=== PATIENT | female | born 1940 | race Caucasian/White ===

== ENCOUNTER 2017-12-09 15:31 | Observation (INO) | payer MEDICARE ==
[~2017-12-09] VITALS: Ht 167.6 cm; Wt 101.4 kg
[2017-12-09] VITALS (9 sets, daily range): BP systolic 138–167; BP diastolic 64–96; PULSE 75–84; RESP 18–22; TEMP 98.3–99.3; O2SAT 92–97
[~2017-12-09 15:31] MED LIST: DILT360C12 PO; DOXA1 PO; FURO20TA PO; LORTA5 PO; LUTE20CA PO; MISC1TAB9 PO; OYST500T77 PO; PERI8.6T PO; RAMI10CA35 PO; RIVA10 PO; TAB-TAB PO; VITA-5 PO; VITA400C70 PO; Z.0.COMMODE-3:1; Z.0.WALKERFRONT
[2017-12-09] MEDS ORDERED: FURO20TA PO (16:56)
[2017-12-09] MEDS ORDERED: DOXA1TAB35 PO (16:56)
[2017-12-09] MEDS ORDERED: RAMI10CA PO (16:56)
[2017-12-09] MEDS ORDERED: ASPI81CH6 CHEW (16:56)
[2017-12-09] MEDS ORDERED: HYDR-3516 PO (16:56)
[2017-12-09] MEDS ORDERED: VITA1000 PO (16:56)
[2017-12-09] MEDS ORDERED: INFL100P (16:56)
[2017-12-09] MEDS ORDERED: DILT360C12 PO (16:56)
[2017-12-09] MEDS ORDERED: CALC1TAB87 PO (16:56)
[2017-12-09] MEDS ORDERED: METH2.5T PO (16:56)
[2017-12-09] MEDS ORDERED: SODIUM CHLORIDE 0.9% FLUSH 10 ML FLUSH IVF PRN (17:15)
[2017-12-09] MEDS ORDERED: RESP: ALBUTEROL 2.5 MG/3 ML NEB (SCH) INH ONE (17:15)
[2017-12-09] MEDS ORDERED: methylPREDNISolone SOD SUCC 125 MG/2 ML VIAL IV PUSH ONE (17:15)
[2017-12-09 17:27] LABS: BASOPHIL # 0.2 TH/MM3 (0-0.2); BASOPHIL % 2.9 % (0.0-2.0); EOSINOPHIL # 0.1 TH/MM3 (0-0.4); EOSINOPHIL % 1.2 % (0.0-4.0); HEMATOCRIT 38.5 % (35.0-46.0); HEMOGLOBIN 12.9 GM/DL (11.6-15.3); LYMPH % 15.1 % (9.0-44.0); LYMPHOCYTE # 1.1 TH/MM3 (1.0-4.8); MEAN CELL VOLUME 97.1 FL (80.0-100.0); MEAN CORPUSCULAR HEMOGLOBIN 32.7 PG (27.0-34.0); MEAN CORPUSCULAR HGB CONC 33.6 % (32.0-36.0); MEAN PLATELET VOLUME 8.1 FL (7.0-11.0); MONOCYTE # 0.6 TH/MM3 (0-0.9); NEUT % 71.8 % (16.0-70.0); PLATELET COUNT 195 TH/MM3 (150-450); RED BLOOD COUNT 3.97 MIL/MM3 (4.00-5.30); RED CELL DISTRIBUTION WIDTH 13.4 % (11.6-17.2)
[2017-12-09 17:36] LABS: CHLORIDE 100 MEQ/L (98-107); SODIUM (NA) 133 MEQ/L (136-145)
[2017-12-09 17:39] LABS: BICARBONATE 24.6 MEQ/L (21.0-32.0); BLOOD UREA NITROGEN 5 MG/DL (7-18); CALCIUM 8.2 MG/DL (8.5-10.1); GLUCOSE,RANDOM 110 MG/DL (74-106)
[2017-12-09 17:43] LABS: CREATININE 0.63 MG/DL (0.50-1.00); GLOMERULAR FILTRATION RATE 92 ML/MIN (>89)
[2017-12-09 17:47] LABS: TROPONIN I LESS THAN 0.02 NG/ML (0.02-0.05)
--- NOTE | 2017-12-09 17:47 | RADRPT ---
EXAM DATE/TIME: 12/09/2017 17:32 [place] COMPARISON: KNEE LEFT LTD (1 OR 2VWS), March 12, 2015, 10:06. INDICATIONS : Shortness of breath. MEDICAL HISTORY : None. SURGICAL HISTORY : None. ENCOUNTER: Initial ACUITY: 3 days PAIN SCORE: 0/10 LOCATION: Bilateral chest FINDINGS: The heart is at the upper limits of normal in size. There are chronic interstitial changes throughout the pulmonary parenchyma. The lungs are otherwise clear. The visualized bony structures are grossly intact. CONCLUSION: 1. Mild cardiomegaly and chronic interstitial changes. Ronal Manzano MD on December 09, 2017 at 17:44 Board Certified Radiologist. This report was verified electronically.
--- NOTE | 2017-12-09 17:50 | PD ---
HPI Chief Complaint: Cold / Flu Symptoms Time Seen by Provider: 17:08 Travel History International Travel<30 days: No Contact w/Intl Traveler<30days: No Traveled to known affect area: No History of Present Illness HPI 77-year-old female complains of cough congestion and pain involving the ribs in association with coughing. She denies fever. The symptoms have been present for a few days. No nausea vomiting or diarrhea. No sick contacts. Rhinorrhea is reported. Generalized aches and pains are reported. PFSH Past Medical History Hx Anticoagulant Therapy: Yes (ASA 81MG EVERY OTHER DAY) Arthritis: Yes Cancer: No Cardiovascular Problems: Yes (MVP) Diabetes: No Diminished Hearing: No Endocrine: No Genitourinary: No Hepatitis: No Hiatal Hernia: No Hypertension: Yes Immune Disorder: No Medical other: No Musculoskeletal: Yes (ARTHRITIS) Neurologic: No Psychiatric: No Reproductive: Yes (HYSTERECTOMY) Respiratory: Yes (SLEEP APNEA USES C PAP) Sleep Apnea: Yes Thyroid Disease: No Influenza Vaccination: Yes ?: Not Past Surgical History Abdominal Surgery: Yes (ANDREW) Body Medical Devices: NONE Gynecologic Surgery: Yes (HYSTERECTOMY) Hysterectomy: Yes Joint Replacement: Yes (left knee) Oral Surgery: Yes (TONSILECTOMY) Pacemaker: No Tonsillectomy: Yes Other Surgery: Yes Social History Alcohol Use: No Tobacco Use: No Substance Use: No Allergies-Medications (Allergen,Severity, Reaction): Coded Allergies: No Known Allergies (Unverified Allergy, Unknown, 12/09/17) Reported Meds & Prescriptions Reported Meds & Active Scripts Active Reported Remicade Inj (Infliximab) 100 Mg Inj 0 Hydrocodone-Acetaminophen 5-325 mg Tab 1 Tab PO TID PRN Vitamin D-1000 (Cholecalciferol) 1,000 Unit Tab 2,000 Units PO DAILY Calcium 600 with Vitamin D (Calcium Carbonate-Cholecalciferol) 600-400 mg-Unit Tab 2 Tab PO DAILY Aspirin Low Dose (Aspirin) 81 Mg Chew 81 Mg CHEW DAILY Methotrexate 2.5 Mg Tab 2.5 Mg PO Q7D Doxazosin (Doxazosin Mesylate) 2 Mg Tab 2 Mg PO HS Diltiazem CD 24 HR 360 Mg Capcr 360 Mg PO DAILY Furosemide 20 Mg Tab 20 Mg PO BID Ramipril 10 Mg Cap 10 Mg PO BID Review of Systems Except as stated in HPI: all other systems reviewed are Neg General / Constitutional: No: Fever Cardiovascular: No: Chest Pain or Discomfort Respiratory: Positive: Cough, Shortness of Breath, Wheezing Physical Exam Narrative GENERAL: 77 -year-old female pleasant mildly anxious speaking short sentences SKIN: Warm and dry. HEAD: Atraumatic. Normocephalic. EYES: Pupils equal and round. No scleral icterus. No injection or drainage. ENT: No nasal bleeding or discharge. Mucous membranes pink and moist. NECK: Trachea midline. No JVD. CARDIOVASCULAR: Regular rate and rhythm. RESPIRATORY: Frequent coughing. Wheezing present in both lungs. GASTROINTESTINAL: Abdomen soft, non-tender, nondistended. Hepatic and splenic margins not palpable. MUSCULOSKELETAL: Extremities without clubbing, cyanosis, or edema. No obvious deformities. NEUROLOGICAL: Awake and alert. No obvious cranial nerve deficits. Motor grossly within normal limits. Five out of 5 muscle strength in the arms and legs. Normal speech. PSYCHIATRIC: Appropriate mood and affect; insight and judgment normal. Data Data Last Documented VS Vital Signs Date Time Temp Pulse Resp B/P (MAP) Pulse Ox O2 Delivery O2 Flow Rate FiO2 12/09/17 19:01 84 18 139/64 (89) 95 Nasal Cannula 12/09/17 18:18 2.00 12/09/17 16:57 98.3 VS reviewed Orders Orders Complete Blood Count With Diff (12/09/17 17:08) Basic Metabolic Panel (Bmp) (12/09/17 17:08) B-Type Natriuretic Peptide (12/09/17 17:08) Ckmb (Isoenzyme) Profile (12/09/17 17:08) Troponin I (12/09/17 17:08) Influenzae A/B Antigen (12/09/17 17:08) Blood Culture (12/09/17 17:08) Iv Access Insert/Monitor (12/09/17 17:08) Electrocardiogram (12/09/17 17:08) Ecg Monitoring (12/09/17 17:08) Oximetry (12/09/17 17:08) Oxygen Administration (12/09/17 17:08) Chest, Single Ap (12/09/17 17:08) Sodium Chloride 0.9% Flush (Ns Flush) (12/09/17 17:15) Methylprednisolone So Succ Inj (Solumedr (12/09/17 17:15) Albuterol Neb (Albuterol Neb) (12/09/17 17:15) CKMB (12/09/17 17:15) CKMB% (12/09/17 17:15) Ceftriaxone Inj (Rocephin Inj) (12/09/17 18:00) Azithromycin Inj (Zithromax Inj) (12/09/17 18:00) Furosemide Inj (Lasix Inj) (12/09/17 18:00) Admit Order (Ed Use Only) (12/09/17 ) Mig Welder / Telemetry LOULOU.Q8H (12/09/17 19:17) Vital Signs (Adult) Q4H (12/09/17 19:17) Activity Bed Rest (12/09/17 19:17) Labs Laboratory Tests Test 12/09/17 17:15 White Blood Count 7.0 TH/MM3 Red Blood Count 3.97 MIL/MM3 Hemoglobin 12.9 GM/DL Hematocrit 38.5 % Mean Corpuscular Volume 97.1 FL Mean Corpuscular Hemoglobin 32.7 PG Mean Corpuscular Hemoglobin Concent 33.6 % Red Cell Distribution Width 13.4 % Platelet Count 195 TH/MM3 Mean Platelet Volume 8.1 FL Neutrophils (%) (Auto) 71.8 % Lymphocytes (%) (Auto) 15.1 % Monocytes (%) (Auto) 9.0 % Eosinophils (%) (Auto) 1.2 % Basophils (%) (Auto) 2.9 % Neutrophils # (Auto) 5.0 TH/MM3 Lymphocytes # (Auto) 1.1 TH/MM3 Monocytes # (Auto) 0.6 TH/MM3 Eosinophils # (Auto) 0.1 TH/MM3 Basophils # (Auto) 0.2 TH/MM3 CBC Comment DIFF FINAL Differential Comment Blood Urea Nitrogen 5 MG/DL Creatinine 0.63 MG/DL Random Glucose 110 MG/DL Calcium Level 8.2 MG/DL Sodium Level 133 MEQ/L Potassium Level 3.7 MEQ/L Chloride Level 100 MEQ/L Carbon Dioxide Level 24.6 MEQ/L Anion Gap 8 MEQ/L Estimat Glomerular Filtration Rate 92 ML/MIN Total Creatine Kinase 113 U/L Creatine Kinase MB 1.8 NG/ML Troponin I LESS THAN 0.02 NG/ML B-Type Natriuretic Peptide 267 PG/ML MDM Medical Decision Making Medical Screen Exam Complete: Yes Emergency Medical Condition: Yes Medical Record Reviewed: Yes Differential Diagnosis Sepsis, pneumonia, influenza, coronary disease Narrative Course CBC & BMP Diagram 12/09/17 17:15 Calcium Level 8.2 L BNP is 267 Troponin is less than 0.02 EKG shows a sinus rate of 76 normal axis and intervals Last Impressions Chest X-Ray 12/09/17 1708 Signed Impressions: Service Date/Time: Saturday, December 09, 2017 17:32 - CONCLUSION: 1. Mild cardiomegaly and chronic interstitial changes. Ronal Manzano MD The patient was ambulated in the ER and took about 10 steps before becoming too dyspneic to proceed. O2 sats of been 95% on 2 L nasal cannula. The patient received Lasix 40 mg IV as well as antibiotics, Rocephin and azithromycin. Case discussed with hospitalist Dr. Jones who requests 23 hr obs order. Diagnosis Primary Impression: CHF (congestive heart failure) Qualified Codes: I50.20 - Unspecified systolic (congestive) heart failure Additional Impressions: Dyspnea Qualified Codes: R06.00 - Dyspnea, unspecified Hypoxemia Cough Admitting Information Admitting Physician Requests: Observation Disposition: 01 DISCHARGE HOME Condition: Stable Ronal Drew MD Dec 09, 2017 17:50
[2017-12-09] MEDS ORDERED: cefTRIAXone INJ 1,000 MG in SODIUM CHLORIDE 0.9% INJ 100 ML IV ONE (18:00)
[2017-12-09] MEDS ORDERED: AZITHROMYCIN INJ 500 MG in SODIUM CHLOR 0.9% 250 ML INJ 250 ML IV ONE (18:00)
[2017-12-09] MEDS ORDERED: FUROSEMIDE 40 MG/4 ML VIAL IV PUSH ONE (18:00)
[2017-12-09] MEDS ORDERED: BISACODYL 10 MG SUPP RECTAL PRN (19:15)
[2017-12-09] MEDS ORDERED: MAGNESIUM HYDROXIDE SUSP 30 ML CUP PO PRN (19:15)
[2017-12-09] MEDS ORDERED: SODIUM CHLORIDE 0.9% FLUSH 10 ML FLUSH IV FLUSH PRN (19:15)
[2017-12-09] MEDS ORDERED: MORPHINE SULFATE 2 MG/ML INJ IV PUSH PRN (19:15)
[2017-12-09] MEDS ORDERED: ONDANSETRON HCL 4 MG/2 ML VIAL IVP PRN (19:15)
[2017-12-09] MEDS ORDERED: SENNOSIDES 8.6 MG TAB PO PRN (19:15)
[2017-12-09] MEDS ORDERED: ACETAMINOPHEN 325 MG TAB PO PRN (19:15)
[2017-12-09] MEDS ORDERED: LACTULOSE SYRUP 20 GM/30 ML CUP PO PRN (19:15)
[2017-12-09] MEDS: RESP: ALBUTEROL 2.5 MG/IPRATROPIUM 0.5 MG NEB (PRN) NEB (20:26)
[2017-12-09] MEDS: RAMIPRIL 5 MG CAP PO SCH (20:52)
[2017-12-09] MEDS: DOXAZOSIN MESYLATE 2 MG TAB PO SCH (20:52)
[2017-12-09] MEDS: FUROSEMIDE 20 MG TAB PO SCH (20:54)
[2017-12-09] MEDS: ACETAMINOPHEN/HYDROcodone 325 MG/5 MG TAB PO PRN (20:54)
[2017-12-09] MEDS: DOCUSATE SODIUM 50 MG/SENNA 8.6 MG TAB PO SCH (20:55)
[2017-12-09] MEDS: SODIUM CHLORIDE 0.9% FLUSH 10 ML FLUSH IV FLUSH SCH (20:55)
[2017-12-09] MEDS ORDERED: ZOLPIDEM TARTRATE 5 MG TAB PO ONE (21:15)
[2017-12-09] MEDS: BUDESONIDE-FORMOTEROL 160/4.5 MCG INHALER INH SCH (21:58)
[2017-12-09] MEDS: methylPREDNISolone SOD SUCC 40 MG/1 ML VIAL IV PUSH SCH (23:59)
[2017-12-10] VITALS (7 sets, daily range): BP systolic 119–143; BP diastolic 64–75; PULSE 74–85; RESP 18–22; TEMP 96.2–98.8; O2SAT 93–97
[2017-12-10] MEDS: ACETAMINOPHEN/HYDROcodone 325 MG/5 MG TAB PO PRN ×5 (04:12→20:25)
[2017-12-10] MEDS: methylPREDNISolone SOD SUCC 40 MG/1 ML VIAL IV PUSH SCH ×3 (06:08→17:05)
[2017-12-10 07:37] LABS: AUTOMATED NEUTROPHIL # 2.9 TH/MM3 (1.8-7.7); HEMATOCRIT 36.9 % (35.0-46.0); HEMOGLOBIN 12.2 GM/DL (11.6-15.3); LYMPH % 19.6 % (9.0-44.0); LYMPHOCYTE # 0.7 TH/MM3 (1.0-4.8); MEAN CELL VOLUME 97.9 FL (80.0-100.0); MEAN CORPUSCULAR HEMOGLOBIN 32.3 PG (27.0-34.0); MEAN PLATELET VOLUME 8.8 FL (7.0-11.0); MONO % 2.7 % (0.0-8.0); MONOCYTE # 0.1 TH/MM3 (0-0.9); NEUT % 76.7 % (16.0-70.0); PLATELET COUNT 200 TH/MM3 (150-450); RED BLOOD COUNT 3.77 MIL/MM3 (4.00-5.30); RED CELL DISTRIBUTION WIDTH 13.1 % (11.6-17.2); WHITE BLOOD COUNT 3.7 TH/MM3 (4.0-11.0)
[2017-12-10 07:43] LABS: CHLORIDE 98 MEQ/L (98-107); SODIUM (NA) 133 MEQ/L (136-145)
[2017-12-10 07:51] LABS: ALBUMIN 3.6 GM/DL (3.4-5.0); BICARBONATE 23.9 MEQ/L (21.0-32.0); CALCIUM 8.2 MG/DL (8.5-10.1); GLUCOSE,RANDOM 176 MG/DL (74-106)
[2017-12-10 07:52] LABS: BLOOD UREA NITROGEN 7 MG/DL (7-18)
[2017-12-10 07:54] LABS: ALT (GPT) 37 U/L (10-53); AST (GOT) 26 U/L (15-37); CREATININE 0.81 MG/DL (0.50-1.00); GLOMERULAR FILTRATION RATE 69 ML/MIN (>89)
[2017-12-10 07:55] LABS: TOTAL BILIRUBIN ADULT 0.4 MG/DL (0.2-1.0)
[2017-12-10 07:56] LABS: TOTAL PROTEIN 6.9 GM/DL (6.4-8.2)
[2017-12-10 07:57] LABS: ALKALINE PHOSPHATASE 113 U/L (45-117)
[2017-12-10] MEDS: DOCUSATE SODIUM 50 MG/SENNA 8.6 MG TAB PO SCH ×2 (08:56→20:26)
[2017-12-10] MEDS: ASPIRIN 81 MG CHEW TAB CHEW SCH (08:56)
[2017-12-10] MEDS: DILTIAZEM-CD 180 MG CAP ER PO SCH (08:57)
[2017-12-10] MEDS: FUROSEMIDE 20 MG TAB PO SCH ×2 (08:57→20:25)
[2017-12-10] MEDS: RAMIPRIL 5 MG CAP PO SCH ×2 (08:58→20:25)
[2017-12-10] MEDS: SODIUM CHLORIDE 0.9% FLUSH 10 ML FLUSH IV FLUSH SCH ×2 (09:00→20:27)
[2017-12-10] MEDS ORDERED: POTASSIUM CHLORIDE 10 MEQ CONTROLLED RELEASE TAB PO ONE (09:15)
[2017-12-10] MEDS: BUDESONIDE-FORMOTEROL 160/4.5 MCG INHALER INH SCH ×2 (11:06→20:24)
[2017-12-10] MEDS: guaiFENesin/DEXTROMETHORPHAN 200 MG/20 MG/10 ML CUP PO PRN (11:07)
--- NOTE | 2017-12-10 14:27 | HHI.HP ---
[facility] Tremaine Tamayo MD Admission Diagnosis CHF; Cough; Dyspnea; Hypoxemia Diagnoses: Chief Complaint: Shortness of breath Travel History International Travel<30 Days: No Contact w/Intl Traveler <30 Da: No Traveled to Known Affected Are: No History of Present Illness This patient is a 77-year-old female with a history of rheumatoid arthritis on infliximab and methotrexate. She presents with 4 days of decreased strength, increased work of breathing and dry cough. She tried cough syrup and was quite concerned enough to come to the hospital. Here she has been short of breath and coughing. She has pneumonia clinically however her x-ray does show some chronic interstitial changes which are nonspecific on my review. She is on tolerated Lasix IV and felt a bit better. She notes no cardiac history but has a history of hypertension for which she has been taken off diltiazem and Lasix and ramipril. In any case the patient is recommended for further evaluation treatment in the hospital. She has signs and symptoms of pneumonia. Review of Systems Constitutional: DENIES: Diaphoretic episodes, Fatigue, Fever, Weight gain, Weight loss, Chills, Dizziness, Change in appetite, Night Sweats Endocrine: DENIES: Abnorml menstrual pattern, Heat/cold intolerance, Polydipsia , Polyuria, Polyphagia Eyes: DENIES: Blurred vision, Diplopia, Eye inflammation, Eye pain, Vision loss , Photosensitivity, Double Vision Ears, nose, mouth, throat: DENIES: Tinnitus, Hearing loss, Vertigo, Nasal discharge, Oral lesions, Throat pain, Hoarseness, Ear Pain, Running Nose, Epistaxis, Sinus Pain, Toothache, Odynophagia Respiratory: COMPLAINS OF: Cough, Shortness of breath, DENIES: Apneas, Snoring , Wheezing, Hemoptysis, Sputum production Cardiovascular: DENIES: Chest pain, Palpitations, Syncope, Dyspnea on Exertion , PND, Lower Extremity Edema, Orthopnea, Claudication Gastrointestinal: DENIES: Abdominal pain, Black stools, Bloody stools, Constipation, Diarrhea, Nausea, Vomiting, Difficulty Swallowing, Anorexia Genitourinary: DENIES: Abnormal vaginal bleeding, Dysmenorrhea, Dyspareunia, Sexual dysfunction, Urinary frequency, Urinary incontinence, Urgency, Hematuria , Dysuria, Nocturia, Vaginal discharge Musculoskeletal: DENIES: Joint pain, Muscle aches, Stiffness, Joint Swelling, Back pain, Neck pain Hematologic/lymphatic: DENIES: Bruising, Lymphadenopathy Immunologic/allergic: DENIES: Eczema, Urticaria Neurologic: DENIES: Abnormal gait, Headache, Localized weakness, Paresthesias, Seizures, Speech Problems, Tremor, Poor Balance Psychiatric: DENIES: Anxiety, Confusion, Mood changes, Depression, Hallucinations, Agitation, Suicidal Ideation, Homicidal Ideation, Delusions Except as stated in HPI: all other systems reviewed are Neg Past Family Social History Past Medical History Hypertension Rheumatoid arthritis Past Surgical History Tonsillectomy Hysterectomy Cholecystectomy Left total knee replacement Reported Medications Reviewed in the EMR, no antibiotics Allergies: Coded Allergies: No Known Allergies (Unverified Allergy, Unknown, 12/09/17) Active Ordered Medications Reviewed in the EMR Family History Mother in her 90s, father in his 40s with Hodgkin's lymphoma Social History No tobacco, no alcohol, is a for 5 years Physical Exam Vital Signs Vital Signs Date Time Temp Pulse Resp B/P (MAP) Pulse Ox O2 Delivery O2 Flow Rate FiO2 12/10/17 12:00 96.2 74 20 127/75 (92) 93 12/10/17 09:58 20 12/10/17 04:05 98.8 77 20 119/64 (82) 97 12/10/17 01:02 98.1 85 22 139/67 (91) 96 12/09/17 21:10 99.3 82 22 142/79 (100) 95 12/09/17 20:30 95 Nasal Cannula 2.00 12/09/17 20:10 83 12/09/17 20:01 82 20 142/67 (92) 95 Nasal Cannula 12/09/17 19:01 84 18 139/64 (89) 95 Nasal Cannula 12/09/17 18:18 80 18 147/69 (95) 97 Nasal Cannula 2.00 12/09/17 17:36 81 20 140/66 (90) 96 Nasal Cannula 2.00 12/09/17 17:25 94 Nasal Cannula 2.00 12/09/17 17:00 20 92 Room Air 12/09/17 16:57 98.3 75 18 167/96 (119) 92 Room Air 12/09/17 15:33 98.8 78 20 138/91 (107) 93 Physical Exam GENERAL: This is a well-nourished, well-developed patient, was coughing and feels poorly SKIN: No rashes, ecchymoses or lesions. Cool and dry. HEAD: Atraumatic. Normocephalic. No temporal or scalp tenderness. EYES: Pupils equal round and reactive. Extraocular motions intact. No scleral icterus. No injection or drainage. ENT: Nose without bleeding, purulent drainage or septal hematoma. Throat without erythema, tonsillar hypertrophy or exudate. Uvula midline. Airway patent. NECK: Trachea midline. No JVD or lymphadenopathy. Supple, nontender, no meningeal signs. CARDIOVASCULAR: Regular rate and rhythm without murmurs, gallops, or rubs. RESPIRATORY: Bilateral wheezes GASTROINTESTINAL: Abdomen soft, non-tender, nondistended. No hepato-splenomegaly , or palpable masses. No guarding. MUSCULOSKELETAL: Extremities without clubbing, cyanosis, or edema. No joint tenderness, effusion, or edema noted. No calf tenderness. Negative Homans sign bilaterally. NEUROLOGICAL: Awake and alert. Cranial nerves II through XII intact. Motor and sensory grossly within normal limits. Five out of 5 muscle strength in all muscle groups. Normal speech. Laboratory Laboratory Tests Test 12/09/17 17:15 12/10/17 06:40 White Blood Count 7.0 3.7 Red Blood Count 3.97 3.77 Hemoglobin 12.9 12.2 Hematocrit 38.5 36.9 Mean Corpuscular Volume 97.1 97.9 Mean Corpuscular Hemoglobin 32.7 32.3 Mean Corpuscular Hemoglobin Concent 33.6 33.0 Red Cell Distribution Width 13.4 13.1 Platelet Count 195 200 Mean Platelet Volume 8.1 8.8 Neutrophils (%) (Auto) 71.8 76.7 Lymphocytes (%) (Auto) 15.1 19.6 Monocytes (%) (Auto) 9.0 2.7 Eosinophils (%) (Auto) 1.2 0.0 Basophils (%) (Auto) 2.9 1.0 Neutrophils # (Auto) 5.0 2.9 Lymphocytes # (Auto) 1.1 0.7 Monocytes # (Auto) 0.6 0.1 Eosinophils # (Auto) 0.1 0.0 Basophils # (Auto) 0.2 0.0 CBC Comment DIFF FINAL DIFF FINAL Differential Comment Blood Urea Nitrogen 5 7 Creatinine 0.63 0.81 Random Glucose 110 176 Calcium Level 8.2 8.2 Sodium Level 133 133 Potassium Level 3.7 3.4 Chloride Level 100 98 Carbon Dioxide Level 24.6 23.9 Anion Gap 8 11 Estimat Glomerular Filtration Rate 92 69 Total Creatine Kinase 113 Creatine Kinase MB 1.8 Troponin I LESS THAN 0.02 B-Type Natriuretic Peptide 267 Total Protein 6.9 Albumin 3.6 Alkaline Phosphatase 113 Aspartate Amino Transf (AST/SGOT) 26 Alanine Aminotransferase (ALT/SGPT) 37 Total Bilirubin 0.4 Magnesium Level 2.0 Date/Time Source Procedure Growth Status 12/09/17 17:20 Blood Peripheral Aerobic Blood Culture - Preliminary NO GROWTH IN 1 DAY Resulted 12/09/17 17:20 Blood Peripheral Anaerobic Blood Culture - Preliminary NO GROWTH IN 1 DAY Resulted 12/09/17 17:10 Nasal Aspirate Influenza Types A,B Antigen (ELBERT) - Final NEGATIVE FOR FLU A AND B ANTIGEN.... Complete Result Diagram: 12/10/17 0640 12/10/17 0640 Imaging Last Impressions Chest X-Ray 12/09/17 1708 Signed Impressions: Service Date/Time: Saturday, December 09, 2017 17:32 - CONCLUSION: 1. Mild cardiomegaly and chronic interstitial changes. Ronal Manzano MD Septic Shock Reassessment Septic shock perfusion: reassessment completed Caprini VTE Risk Assessment Caprini VTE Risk Assessment: Mod/High Risk (score >= 2) Caprini Risk Assessment Model Point Value = 1 Point Value = 2 Point Value = 3 Point Value = 5 Age 41-60 Minor surgery BMI > 25 kg/m2 Swollen legs Varicose veins or History of unexplained or recurrent spontaneous Oral contraceptives or hormone replacement Sepsis (< 1 month) Serious lung disease, including pneumonia (< 1 month) Abnormal pulmonary function Acute myocardial infarction Congestive heart failure (< 1 month) History of inflammatory bowel disease Medical patient at bed rest Age 61-74 Arthroscopic surgery Major open surgery (> 45 min) Laparoscopic surgery (> 45 min) Malignancy Confined to bed (> 72 hours) Immobilizing plaster cast Central venous access Age >= 75 History of VTE Family history of VTE Factor V Leiden Prothrombin 10020Q Lupus anticoagulant Anticardiolipin antibodies Elevated serum homocysteine Heparin-induced thrombocytopenia Other congenital or acquired thrombophilia Stroke (< 1 month) Elective arthroplasty Hip, pelvis, or leg fracture Acute spinal cord injury (< 1 month) Prophylaxis Regimen Total Risk Factor Score Risk Level Prophylaxis Regimen 0-1 Low Early ambulation 2 Moderate Order ONE of the following: *Sequential Compression Device (SCD) *Heparin 5000 units SQ BID 3-4 Higher Order ONE of the following medications: *Heparin 5000 units SQ TID *Enoxaparin/Lovenox 40 mg SQ daily (WT < 150 kg, CrCl > 30 mL/min) *Enoxaparin/Lovenox 30 mg SQ daily (WT < 150 kg, CrCl > 10-29 mL/min) *Enoxaparin/Lovenox 30 mg SQ BID (WT < 150 kg, CrCl > 30 mL/min) AND/OR *Sequential Compression Device (SCD) 5 or more Highest Order ONE of the following medications: *Heparin 5000 units SQ TID (Preferred with Epidurals) *Enoxaparin/Lovenox 40 mg SQ daily (WT < 150 kg, CrCl > 30 mL/min) *Enoxaparin/Lovenox 30 mg SQ daily (WT < 150 kg, CrCl > 10-29 mL/min) *Enoxaparin/Lovenox 30 mg SQ BID (WT < 150 kg, CrCl > 30 mL/min) AND *Sequential Compression Device (SCD) Assessment and Plan Problem List: (1) Pneumonia ICD Code: J18.9 - Pneumonia, unspecified organism Plan: Continue IV antibiotics Levaquin Follow-up echocardiogram and supportive care for coughing and fever (2) Arthritis, rheumatoid ICD Code: M06.9 - Rheumatoid arthritis, unspecified Plan: Patient on chronic immunosuppressive therapy with methotrexate and infliximab We'll continue supportive care and pain management Akanksha Saleh MD Dec 10, 2017 14:27
--- NOTE | 2017-12-10 14:59 | EKG ---
Date Performed: 12/09/2017 Time Performed: 17:30:00 PTAGE: 77 years EKG: Sinus rhythm SEPTAL MYOCARDIAL INFARCTION ABNORMAL ECG Since PREVIOUS TRACING , no significant change noted PREVIOUS TRACIN06/20/2015 12.54 DOCTOR: Adilson Zuniga Interpretating Date/Time 12/10/2017 14:57:12
[2017-12-10] MEDS ORDERED: cefTRIAXone INJ 1,000 MG in SODIUM CHLORIDE 0.9% INJ 100 ML IV SCH (17:00)
[2017-12-10] MEDS: RESP: ALBUTEROL 2.5 MG/IPRATROPIUM 0.5 MG NEB (PRN) NEB ×3 (17:07→22:33)
[2017-12-10] MEDS ORDERED: AZITHROMYCIN INJ 500 MG in SODIUM CHLOR 0.9% 250 ML INJ 250 ML IV SCH (18:00)
[2017-12-10] MEDS: LEVOFLOXACIN 750 MG PREMIX INJ 150 ML IV SCH (20:23)
[2017-12-10] MEDS: HEPARIN SODIUM - SQ 10,000 UNITS/ML VIAL SQ SCH (20:25)
[2017-12-10] MEDS: DOXAZOSIN MESYLATE 2 MG TAB PO SCH (20:25)
[2017-12-10] MEDS ORDERED: ZOLPIDEM TARTRATE 5 MG TAB PO PRN (22:00)
[2017-12-11] VITALS (7 sets, daily range): BP systolic 121–145; BP diastolic 60–72; PULSE 80–93; RESP 18–24; TEMP 97–98.8; O2SAT 95–97
[2017-12-11] MEDS: methylPREDNISolone SOD SUCC 40 MG/1 ML VIAL IV PUSH SCH ×5 (00:16→23:16)
[2017-12-11] MEDS: RESP: ALBUTEROL 2.5 MG/IPRATROPIUM 0.5 MG NEB (PRN) NEB ×4 (05:46→23:13)
[2017-12-11] MEDS: HEPARIN SODIUM - SQ 10,000 UNITS/ML VIAL SQ SCH ×3 (06:06→20:40)
[2017-12-11] MEDS: ACETAMINOPHEN/HYDROcodone 325 MG/5 MG TAB PO PRN ×5 (06:12→21:27)
--- NOTE | 2017-12-11 08:51 | HHI.PR ---
Subjective Remarks Patient seen today in follow-up for pneumonia and dyspnea. Doing well on current antibiotics although still quite dyspneic. She is wheezing on exam. She is also planning constipation Objective Vitals Vital Signs Date Time Temp Pulse Resp B/P (MAP) Pulse Ox O2 Delivery O2 Flow Rate FiO2 12/11/17 00:00 97.1 91 18 130/63 (85) 95 12/10/17 20:30 97.7 78 18 130/65 (86) 94 12/10/17 19:41 96 Nasal Cannula 2.00 12/10/17 18:09 20 12/10/17 17:41 96.5 77 18 143/75 (97) 95 12/10/17 15:46 94 Nasal Cannula 2.00 12/10/17 12:00 96.2 74 20 127/75 (92) 93 I/O 12/10/17 12/10/17 12/10/17 12/11/17 12/11/17 12/11/17 07:00 15:00 23:00 07:00 15:00 23:00 Intake Total 150 ml 680 ml Balance 150 ml 680 ml Intake Oral 680 ml IV Total 150 ml # Voids 2 4 # Bowel Movements 0 0 Result Diagram: 12/10/17 0640 12/10/17 0640 Objective Remarks GENERAL: This is a well-nourished, well-developed patient, in no apparent distress. CARDIOVASCULAR: Regular rate and rhythm without murmurs, gallops, or rubs. RESPIRATORY: Clear to auscultation. Breath sounds equal bilaterally. Scattered wheezes bilaterally GASTROINTESTINAL: Abdomen soft, non-tender, nondistended. Normal active bowel sounds MUSCULOSKELETAL: Extremities without clubbing, cyanosis, or edema. NEURO: Alert & Oriented x4 to person, place, time, situation. Moves all ext x4 A/P Problem List: (1) Pneumonia ICD Code: J18.9 - Pneumonia, unspecified organism Plan: Continue IV antibiotics Levaquin Follow-up echocardiogram and supportive care for coughing and fever (2) Arthritis, rheumatoid ICD Code: M06.9 - Rheumatoid arthritis, unspecified Plan: Patient on chronic immunosuppressive therapy with methotrexate and infliximab We'll continue supportive care and pain management Discharge Planning may need [facility] PT eval pending Akanksha Saleh MD Dec 11, 2017 08:51
[2017-12-11] MEDS: DILTIAZEM-CD 180 MG CAP ER PO SCH (08:59)
[2017-12-11] MEDS: FUROSEMIDE 20 MG TAB PO SCH ×2 (09:00→20:39)
[2017-12-11] MEDS: SODIUM CHLORIDE 0.9% FLUSH 10 ML FLUSH IV FLUSH SCH ×2 (09:00→20:40)
[2017-12-11] MEDS: ASPIRIN 81 MG CHEW TAB CHEW SCH (09:00)
[2017-12-11] MEDS: RAMIPRIL 5 MG CAP PO SCH ×2 (09:00→20:39)
[2017-12-11] MEDS: DOCUSATE SODIUM 50 MG/SENNA 8.6 MG TAB PO SCH ×2 (09:00→20:39)
[2017-12-11] MEDS: BUDESONIDE-FORMOTEROL 160/4.5 MCG INHALER INH SCH ×2 (09:00→20:39)
[2017-12-11] MEDS: RESP: ALBUTEROL 2.5 MG/IPRATROPIUM 0.5 MG NEB (SCH) NEB ×2 (13:22→19:44)
--- NOTE | 2017-12-11 16:55 | ECHRPT ---
Indication: SHORTNESS OF BREATH CONCLUSIONS The left ventricular systolic function is normal with an estimated ejection fraction in the range of 55-60%. Normal left ventricular size. Wall thickness is normal. No regional wall motion abnormalities are present. Trace mitral valve regurgitation. Aortic valve sclerosis is present. There is trace tricuspid valve regurgitation. Trivial pulmonary valve regurgitation. The inferior vena cava is dilated. BP: 130 / 63 HR: 85 Rhythm: Sinus MEASUREMENTS (Male / Female) Normal Values Technical Quality:Technically difficult study 2D ECHO LV Diastolic Diameter PLAX 4.3 cm 4.2 - 5.9 / 3.9 - 5.3 cm LV Systolic Diameter PLAX 2.9 cm IVS Diastolic Thickness 1.1 cm 0.6 - 1.0 / 0.6 - 0.9 cm LVPW Diastolic Thickness 1.1 cm 0.6 - 1.0 / 0.6 - 0.9 cm LV Relative Wall Thickness 0.5 RV Internal Dim ED PLAX 3.5 cm LVOT Diameter 1.7 cm LA Systolic Diameter LX 4.0 cm 3.0 - 4.0 / 2.7 - 3.8 cm DOPPLER AV Peak Velocity 191.0 cm/s AV Peak Gradient 14.6 mmHg LVOT Peak Velocity 91.3 cm/s LVOT Peak Gradient 3.3 mmHg AV Area Cont Eq pk 1.1 cm MV Area PHT 3.9 cm Mitral E Point Velocity 124.0 cm/s Mitral A Point Velocity 65.2 cm/s Mitral E to A Ratio 1.9 LV E' Lateral Velocity 10.7 cm/s Mitral E to LV E' Lateral Ratio 11.6 LV E' Septal Velocity 8.4 cm/s Mitral E to LV E' Septal Ratio 14.8 TR Peak Velocity 240.0 cm/s TR Peak Gradient 23.0 mmHg Right Atrial Pressure 10.0 mmHg Pulmonary Artery Systolic Pressu 33.0 mmHg Right Ventricular Systolic Press 33.0 mmHg PV Peak Velocity 100.0 cm/s PV Peak Gradient 4.0 mmHg FINDINGS LEFT VENTRICLE The left ventricular systolic function is normal with an estimated ejection fraction in the range of 55-60%. Normal left ventricular size. Wall thickness is normal. No regional wall motion abnormalities are present. RIGHT VENTRICLE Normal right ventricular size and systolic function. LEFT ATRIUM The left atrial size is normal. RIGHT ATRIUM The right atrial size is normal. ATRIAL SEPTUM Normal atrial septal thickness without atrial level shunting by limited color doppler interrogation. AORTA The aortic root and proximal ascending aorta are normal in size on limited imaging. MITRAL VALVE Structurally normal mitral valve. Trace mitral valve regurgitation. AORTIC VALVE Aortic valve sclerosis is present. TRICUSPID VALVE Structurally normal tricuspid valve. There is trace tricuspid valve regurgitation. PULMONARY VALVE Trivial pulmonary valve regurgitation. VESSELS The inferior vena cava is dilated. PERICARDIUM No pericardial effusion. Adilson Zuniga MD (Electronically Signed) Final Date:11 December 2017 16:53
[2017-12-11] MEDS: DOXAZOSIN MESYLATE 2 MG TAB PO SCH (20:39)
[2017-12-11] MEDS: LEVOFLOXACIN 750 MG PREMIX INJ 150 ML IV SCH (20:40)
[2017-12-11] MEDS: ZOLPIDEM TARTRATE 5 MG TAB PO PRN (23:15)
[2017-12-12] VITALS (8 sets, daily range): BP systolic 127–145; BP diastolic 69–73; PULSE 80–95; RESP 19–24; TEMP 96.3–98.1; O2SAT 93–99
[2017-12-12] MEDS: HEPARIN SODIUM - SQ 10,000 UNITS/ML VIAL SQ SCH ×3 (06:16→20:31)
[2017-12-12] MEDS: methylPREDNISolone SOD SUCC 40 MG/1 ML VIAL IV PUSH SCH ×2 (06:16→11:58)
[2017-12-12] MEDS: ACETAMINOPHEN/HYDROcodone 325 MG/5 MG TAB PO PRN ×3 (06:17→20:33)
[2017-12-12 06:34] LABS: AUTOMATED NEUTROPHIL # 16.4 TH/MM3 (1.8-7.7); BASOPHIL % 0.1 % (0.0-2.0); EOSINOPHIL % 0.1 % (0.0-4.0); HEMATOCRIT 35.5 % (35.0-46.0); HEMOGLOBIN 11.8 GM/DL (11.6-15.3); LYMPH % 7.4 % (9.0-44.0); LYMPHOCYTE # 1.4 TH/MM3 (1.0-4.8); MEAN CELL VOLUME 99.9 FL (80.0-100.0); MEAN CORPUSCULAR HEMOGLOBIN 33.2 PG (27.0-34.0); MEAN CORPUSCULAR HGB CONC 33.2 % (32.0-36.0); MEAN PLATELET VOLUME 9.1 FL (7.0-11.0); MONO % 5.8 % (0.0-8.0); MONOCYTE # 1.1 TH/MM3 (0-0.9); NEUT % 86.6 % (16.0-70.0); PLATELET COUNT 208 TH/MM3 (150-450); RED BLOOD COUNT 3.56 MIL/MM3 (4.00-5.30); RED CELL DISTRIBUTION WIDTH 13.9 % (11.6-17.2); WHITE BLOOD COUNT 18.9 TH/MM3 (4.0-11.0)
[2017-12-12 06:46] LABS: CALCIUM 8.8 MG/DL (8.5-10.1)
[2017-12-12 06:47] LABS: BICARBONATE 27.1 MEQ/L (21.0-32.0)
[2017-12-12] MEDS ORDERED: MAGNESIUM HYDROXIDE SUSP 30 ML CUP PO ONE (07:15)
[2017-12-12 07:22] LABS: CREATININE 0.85 MG/DL (0.50-1.00)
[2017-12-12] MEDS: RESP: ALBUTEROL 2.5 MG/IPRATROPIUM 0.5 MG NEB (SCH) NEB ×3 (07:31→20:06)
[2017-12-12] MEDS: RAMIPRIL 5 MG CAP PO SCH ×2 (08:28→20:32)
[2017-12-12] MEDS: FUROSEMIDE 20 MG TAB PO SCH ×2 (08:28→20:32)
[2017-12-12] MEDS: BUDESONIDE-FORMOTEROL 160/4.5 MCG INHALER INH SCH ×2 (08:28→20:32)
[2017-12-12] MEDS: DOCUSATE SODIUM 50 MG/SENNA 8.6 MG TAB PO SCH ×2 (08:29→20:33)
[2017-12-12] MEDS: ASPIRIN 81 MG CHEW TAB CHEW SCH (08:29)
[2017-12-12] MEDS: SODIUM CHLORIDE 0.9% FLUSH 10 ML FLUSH IV FLUSH SCH ×2 (08:29→20:33)
[2017-12-12] MEDS: DILTIAZEM-CD 180 MG CAP ER PO SCH (08:29)
--- NOTE | 2017-12-12 09:32 | HHI.FF ---
Face to Face Verification Diagnosis: (1) Physical deconditioning (2) Pneumonia (3) Dyspnea Physical Therapy Order: Evaluate and Treat, Improve ambulation, Strength and gait training Home Health Nursing Order: Medical education Signs/symptoms of disease process Nursing assessment with vital signs I have seen patient Mary Ellen Delgado on 12/12/17. My clinical findings support the need for the requested home health care services because: Patient has SOB Deconditioned w/ increased weakness I certify that my clinical findings support that this patient is homebound because: Unsteady gait/balance Unsafe to leave home unassisted Og Germain Dec 12, 2017 09:32
[2017-12-12] MEDS ORDERED: Budeson-Formot 160-4.5 Mcg Inh INH (15:48)
[2017-12-12] MEDS ORDERED: LEVA750T9 PO (15:48)
[2017-12-12] MEDS ORDERED: IPRAAER INH (15:48)
[2017-12-12] MEDS ORDERED: MEDR4PAK PO (15:48)
[2017-12-12] MEDS ORDERED: DEXT10SY2 PO (15:48)
--- NOTE | 2017-12-12 15:48 | HHI.DCPOC ---
Discharge Care Plan Diagnosis: (1) Pneumonia (2) Physical deconditioning (3) CHF (congestive heart failure) Goals to Promote Your Health * To prevent worsening of your condition and complications * To maintain your health at the optimal level Directions to Meet Your Goals Take your medications as prescribed Follow your dietary instruction Follow activity as directed Keep your appointments as scheduled Take your immunizations and boosters as scheduled If your symptoms worsen call your PCP, if no PCP go to Urgent Care Center or Emergency Room Smoking is Dangerous to Your Health. Avoid second hand smoke Call the 24-hour hour crisis hotline for domestic abuse at Og Germain Dec 12, 2017 15:48
--- NOTE | 2017-12-12 16:03 | HHI.DS ---
Discharge Summary Admission Date Dec 09, 2017 at 19:17 Discharge Date: Dec 12, 2017 Admitting Diagnosis CHF; Cough; Dyspnea; Hypoxemia (1) Pneumonia ICD Code: J18.9 - Pneumonia, unspecified organism (2) Arthritis, rheumatoid ICD Code: M06.9 - Rheumatoid arthritis, unspecified Procedures 12/11/17, echocardiogram. Left ventricular function was normal with ejection fraction 55-60%. Trace of mitral valve regurgitation, aortic valve sclerosis is present, trace of tricuspid valve regurgitation Brief History - From Admission This patient is a 77-year-old female with a history of rheumatoid arthritis on infliximab and methotrexate. She presents with 4 days of decreased strength, increased work of breathing and dry cough. She tried cough syrup and was quite concerned enough to come to the hospital. Here she has been short of breath and coughing. She has pneumonia clinically however her x-ray does show some chronic interstitial changes which are nonspecific on my review. She is on tolerated Lasix IV and felt a bit better. She notes no cardiac history but has a history of hypertension for which she has been taken off diltiazem and Lasix and ramipril. In any case the patient is recommended for further evaluation treatment in the hospital. She has signs and symptoms of pneumonia. CBC/BMP: 12/12/17 0537 12/12/17 0537 Significant Findings Laboratory Tests Test 12/09/17 17:15 12/10/17 06:40 12/12/17 05:37 Red Blood Count 3.97 MIL/MM3 (4.00-5.30) 3.77 MIL/MM3 (4.00-5.30) 3.56 MIL/MM3 (4.00-5.30) Neutrophils (%) (Auto) 71.8 % (16.0-70.0) 76.7 % (16.0-70.0) 86.6 % (16.0-70.0) Monocytes (%) (Auto) 9.0 % (0.0-8.0) Basophils (%) (Auto) 2.9 % (0.0-2.0) Blood Urea Nitrogen 5 MG/DL (7-18) 21 MG/DL (7-18) Random Glucose 110 MG/DL (74-106) 176 MG/DL (74-106) 181 MG/DL (74-106) Calcium Level 8.2 MG/DL (8.5-10.1) 8.2 MG/DL (8.5-10.1) Sodium Level 133 MEQ/L (136-145) 133 MEQ/L (136-145) 135 MEQ/L (136-145) Troponin I LESS THAN 0.02 NG/ML B-Type Natriuretic Peptide 267 PG/ML (0-100) White Blood Count 3.7 TH/MM3 (4.0-11.0) 18.9 TH/MM3 (4.0-11.0) Lymphocytes # (Auto) 0.7 TH/MM3 (1.0-4.8) Potassium Level 3.4 MEQ/L (3.5-5.1) Estimat Glomerular Filtration Rate 69 ML/MIN (>89) 65 ML/MIN (>89) Lymphocytes (%) (Auto) 7.4 % (9.0-44.0) Neutrophils # (Auto) 16.4 TH/MM3 (1.8-7.7) Monocytes # (Auto) 1.1 TH/MM3 (0-0.9) Imaging Last Impressions Chest X-Ray 12/09/17 1708 Signed Impressions: Service Date/Time: Saturday, December 09, 2017 17:32 - CONCLUSION: 1. Mild cardiomegaly and chronic interstitial changes. Ronal Manzano MD PE at Discharge GENERAL: This is a well-nourished, well-developed patient, in no apparent distress. CARDIOVASCULAR: Regular rate and rhythm without murmurs, gallops, or rubs. Very minimal forced end expiratory wheeze GASTROINTESTINAL: Abdomen soft, non-tender, nondistended. Normal active bowel sounds MUSCULOSKELETAL: Extremities without clubbing, cyanosis, or edema. NEURO: Alert & Oriented x4 to person, place, time, situation. Moves all ext x4 Hospital Course 77-year-old female with known history of rheumatoid arthritis who recently presented to hospital because of 4 days of increased fatigue, weakness , dyspnea, dry cough. As indicated that she did try some cough medicine outpatient setting but however did not improve. Because she was continued coughing she came to emergency department for evaluation. Patient did have workup done emergency department found to have mildly elevated BNP with chronic interstitial changes on chest x-ray. Patient was placed in observation with treatment for pneumonia/bronchitis to include initial Rocephin/Zithromax and surgically change to Levaquin 750 mg by mouth daily. Patient continued on nebulizer treatments every 6 hours while awake and every 2 hours as needed. Patient was given 1 extra dose of Lasix 20 mg IV and resumed back on her normal outpatient Lasix 20 mg twice daily. Echocardiogram was performed which did indicate normal ejection fraction 55-60%, showed normal left ventricular function, trivial pulmonary valve regurgitation, trace of tricuspid valve regurgitation. Patient continued with O2 supplementation and subsequently has been weaned off of oxygen. She did undergo home oxygen walk study which maintain 95% O2 saturations on exertion and at rest. Patient does not require oxygen at this time. Patient was started on Solu-Medrol for inflammation which does cause increase in leukocytosis as well as hyperglycemia and has been converted to prednisone by mouth in which the leukocytosis hyperglycemia should improve. Patient did have physical therapy evaluation performed which indicated that she did walk 45 feet with contact-guard and 30 feet unassisted with front wheel walker. Physical therapy recommended patient can be discharged to rehabilitation versus home with home health PT. Patient condition was discussed with her extensively about her previous, current treatment. Notified her that she is on only oral medication at this time for her condition. Notifying her that we are not providing her any treatment here that she cannot receive at home. Discussed with her her underlying findings of normal O2 saturations, she passed her walk study and does not require home oxygen. Patient is still indicating that she is too weak to leave today. She states that she was not able to walk this morning with physical therapy, however I did review the physical therapy's notes with the patient. I discussed with her that if she was still too weak to go home and is also recommended that she go to rehabilitation, patient is adamant that she does not want to go to a rehabilitation facility, she wants to go home. Patient threatened that if we were to discharge her today that she will come right back to the ER and get readmitted. Discussed with nursing staff, Frank Hunt, case management. Patient is clinically stable this time. Discharge order is in place with home health care. Case management consulted to arrange home health care. Patient will be discharged once arrangements made by case management. Pt Condition on Discharge: Stable Discharge Disposition: Disch w/ Home Health Serv Discharge Time: > 30 minutes Discharge Instructions DIET: Follow Instructions for: Heart Healthy Diet Activities you can perform: Regular-No Restrictions Activities to Avoid: Driving for 24 hrs Follow up Referrals: PCP Follow-up - 1 Week New Medications: Ipratropium-Albuterol Inh (Combivent Respimat Inh) 20-100 Shelter/Act Aero 1 PUFF INH QID for Pneumonia, #1 INHALER 0 Refills Methylprednisolone Dosepak (Medrol Dosepak) 4 Mg Dspk 4 MG PO DIRECTED, #1 DSPK 0 Refills Per Pharmacist direction Dextromethorphan-Guaifenesin (Dextromethorphan/Guaifene 10-100 mg/5Ml) 100 Mg- 10 Mg/5 Ml Syp 10 ML PO Q6H PRN for COUGH, #4 OZ Levofloxacin (Levaquin) 750 Mg Tablet 750 MG PO Q24H for pneumonia for 5 Days, #5 TAB [Budeson-Formot 160-4.5 Mcg Inh] () 60 PUFF AERO 2 PUFF INH Q12HR for Pneumonia, #1 INHALER Continued Medications: Aspirin (Aspirin Low Dose) 81 Mg Chew 81 MG CHEW DAILY, TAB 0 Refills Calcium Carbonate-Cholecalciferol (Calcium 600 with Vitamin D) 600-400 mg-Unit Tab 2 TAB PO DAILY for Calcium Supplement, TAB 0 Refills Cholecalciferol (Vitamin D-1000) 1,000 Unit Tab 2000 UNITS PO DAILY for Nutritional Supplement, #1 BOTTLE 0 Refills Diltiazem CD 24 HR (Diltiazem CD 24 HR) 360 Mg Capcr 360 MG PO DAILY, #30 CAP 0 Refills Doxazosin (Doxazosin) 2 Mg Tab 2 MG PO HS, #30 TAB 0 Refills Furosemide (Furosemide) 20 Mg Tab 20 MG PO BID, #30 TAB 0 Refills Hydrocodone-Acetaminophen (Hydrocodone-Acetaminophen) 5-325 mg Tab 1 TAB PO TID PRN for PAIN, TAB 0 Refills Infliximab Inj (Remicade Inj) 100 Mg Inj 0 Methotrexate (Methotrexate) 2.5 Mg Tab 2.5 MG PO Q7D, TAB 0 Refills Ramipril (Ramipril) 10 Mg Cap 10 MG PO BID, #30 CAP 0 Refills Og Germain Dec 12, 2017 16:03
[2017-12-12] MEDS ORDERED: LEVOFLOXACIN 750 MG TAB PO SCH (20:00)
[2017-12-12] MEDS: DOXAZOSIN MESYLATE 2 MG TAB PO SCH (20:32)
[2017-12-12] MEDS: predniSONE 20 MG TAB PO SCH (20:32)
[2017-12-12] MEDS: ZOLPIDEM TARTRATE 5 MG TAB PO PRN (20:32)
[2017-12-12] MEDS: RESP: ALBUTEROL 2.5 MG/IPRATROPIUM 0.5 MG NEB (PRN) NEB (23:57)
[2017-12-13] VITALS: BP 123/74; PULSE 87; RESP 20; TEMP 97.8; O2SAT 93
[2017-12-13] MEDS: HEPARIN SODIUM - SQ 10,000 UNITS/ML VIAL SQ SCH (04:32)
[2017-12-13] MEDS: RESP: ALBUTEROL 2.5 MG/IPRATROPIUM 0.5 MG NEB (SCH) NEB ×2 (07:27→13:57)
[2017-12-13 07:30] VITALS: O2SAT 93
[2017-12-13 08:00] VITALS: BP 145/51; PULSE 83; RESP 20; TEMP 96.5; O2SAT 95
[2017-12-13] MEDS: BUDESONIDE-FORMOTEROL 160/4.5 MCG INHALER INH SCH (09:53)
[2017-12-13] MEDS: RAMIPRIL 5 MG CAP PO SCH (09:54)
[2017-12-13] MEDS: ASPIRIN 81 MG CHEW TAB CHEW SCH (09:54)
[2017-12-13] MEDS: DOCUSATE SODIUM 50 MG/SENNA 8.6 MG TAB PO SCH (09:54)
[2017-12-13] MEDS: FUROSEMIDE 20 MG TAB PO SCH (09:54)
[2017-12-13] MEDS: predniSONE 20 MG TAB PO SCH (09:54)
[2017-12-13] MEDS: DILTIAZEM-CD 180 MG CAP ER PO SCH (09:54)
[2017-12-13] MEDS: SODIUM CHLORIDE 0.9% FLUSH 10 ML FLUSH IV FLUSH SCH (09:58)
--- NOTE | 2017-12-13 10:13 | HHI.PR ---
Subjective Remarks Patient seen and examined, to be discharged home today. Order in and summary done. Patient did well overnight. Feeling much better. Eating well. Ambulating well. Eager to get home with [facility]. Objective Vitals Vital Signs Date Time Temp Pulse Resp B/P (MAP) Pulse Ox O2 Delivery O2 Flow Rate FiO2 12/13/17 08:00 96.5 83 20 145/51 (82) 95 12/13/17 07:30 93 21 12/13/17 00:00 97.8 87 20 123/74 (90) 93 12/12/17 20:06 95 21 12/12/17 20:00 97.5 88 20 141/71 (94) 95 12/12/17 16:00 96.6 80 20 145/71 (95) 97 12/12/17 13:28 95 21 12/12/17 12:00 97.6 85 20 127/69 (88) 95 I/O 12/12/17 12/12/17 12/12/17 12/13/17 12/13/17 12/13/17 07:00 15:00 23:00 07:00 15:00 23:00 Intake Total 960 ml 240 ml Balance 960 ml 240 ml Intake Oral 960 ml 240 ml # Voids 2 4 4 1 # Bowel Movements 0 1 Result Diagram: 12/12/17 0537 12/12/17 0537 Imaging Last Impressions Chest X-Ray 12/09/17 1708 Signed Impressions: Service Date/Time: Saturday, December 09, 2017 17:32 - CONCLUSION: 1. Mild cardiomegaly and chronic interstitial changes. Ronal Manzano MD Objective Remarks GENERAL: This is a well-nourished, well-developed patient, in no apparent distress. CARDIOVASCULAR: Regular rate and rhythm without murmurs, gallops, or rubs. Very minimal forced end expiratory wheeze GASTROINTESTINAL: Abdomen soft, non-tender, nondistended. Normal active bowel sounds MUSCULOSKELETAL: Extremities without clubbing, cyanosis, or edema. NEURO: Alert & Oriented x4 to person, place, time, situation. Moves all ext x4 Procedures 12/11/17, echocardiogram. Left ventricular function was normal with ejection fraction 55-60%. Trace of mitral valve regurgitation, aortic valve sclerosis is present, trace of tricuspid valve regurgitation A/P Problem List: (1) Pneumonia ICD Code: J18.9 - Pneumonia, unspecified organism Plan: Will DC on Levaquin. Follow-up echocardiogram and supportive care for coughing and fever (2) Arthritis, rheumatoid ICD Code: M06.9 - Rheumatoid arthritis, unspecified Plan: Patient on chronic immunosuppressive therapy with methotrexate and infliximab We'll continue supportive care and pain management Discharge Planning DC today with [facility]. Problem Qualifiers (1) Pneumonia: Qualified Codes: J18.9 - Pneumonia, unspecified organism Sharlene Duran Dec 13, 2017 10:13
[2017-12-13 12:00] VITALS: BP 147/83; PULSE 92; RESP 20; TEMP 96.3; O2SAT 94
[2017-12-13] MEDS: guaiFENesin/DEXTROMETHORPHAN 200 MG/20 MG/10 ML CUP PO PRN (15:01)
== END 2017-12-13 15:43 | disposition home or self-care (01) ==
LOC: PHED 15:31 → PHEDA 19:17 → PH3B 20:14
PROVIDERS: ADMIT Hospitalist; ATTEND Hospitalist
DX: J18.9 Pneumonia, unspecified organism (principal); I11.0 Hypertensive heart disease with heart failure; I50.9 Heart failure, unspecified; R05 Cough; M06.9 Rheumatoid arthritis, unspecified; G47.30 Sleep apnea, unspecified; R06.02 Shortness of breath; Z79.82 Long term (current) use of aspirin; Z79.899 Other long term (current) drug therapy; Z96.652 Presence of left artificial knee joint
CPT/HCPCS: 71045; 80048; 80053; 82550; 82552; 83735; 83880; 84484; 85025; 87040; 87804; 93005; 93306; 94640; 94664; 96365; 96366; 96372; 96375; 96376; 97110; 97116; 97162; 99285; G0378; G8987; G8988; J0456; J0696; J1644; J1940; J1956; J2920; J2930; J7050; J7512; J7613